=== PATIENT | male | born 1960 | race Caucasian/White ===

== ENCOUNTER 2025-05-26 08:54 | Inpatient (IN) | payer SELFPAY ==
[~2025-05-26] VITALS: Ht 182.9 cm; Wt 81.6 kg
[2025-05-26 09:15] LABS: IMMATURE GRANULOCYTE ABSOLUTE 0.02 K/uL (0-1); NUCLEATED RED BLOOD CELLS 0.0 % (0.0-0.19); PLATELET COUNT (AUTO) 248 K/uL (130-400); RED BLOOD CELL COUNT(AUTO) 4.73 MIL/uL (4.50-6.20); RED CELL DISTRIBUTION WIDTH 12.8 % (11.0-15.5); WHITE BLOOD COUNT (AUTO) 8.4 K/uL (4.8-10.8)
[2025-05-26] MEDS: NITROGLYCERIN 0.4 MG SL TAB SL PRN (09:33)
[2025-05-26] MEDS: NITROGLYCERIN 0.4 MG SL TAB SL ONE (09:33)
--- NOTE | 2025-05-26 09:47 | HMCIMG ---
EXAM: CR Chest, 2 View. CLINICAL HISTORY: cp COMPARISON: None provided. FINDINGS: LUNGS: The lungs show no infiltrate or other acute finding. PLEURAL SPACES: No evidence of pleural effusion or pneumothorax. MEDIASTINUM: Cardiac size and mediastinal contours within normal limits. BONES: No acute osseous abnormality. IMPRESSION: No acute cardiopulmonary pathology is evident. /[place]
[2025-05-26 09:49] LABS: CREATININE 0.9 mg/dL (0.5-1.3); GLOMERULAR FILTR. RATE CALC 97.0 mL/min (>90); GLUCOSE,RANDOM 117.0 mg/dL (70-105); SODIUM SERUM 138.0 mmol/L (136-145); UREA NITROGEN, BLOOD 12.0 mg/dL (7-18)
[2025-05-26 09:54] LABS: CREATINE KINASE, TOTAL 127.0 U/L (21-232)
[2025-05-26 09:58] LABS: INR 1.03 (0.85-1.15)
--- NOTE | 2025-05-26 10:05 | ERN ---
General Chief Complaint: Chest Pain Stated Complaint: CP Time Seen by MD: 08:57 Source: patient History of Present Illness Initial Comments Patient is a 64-year-old gentleman coming in complaining of chest pressure. Patient states that the chest pressure began two days ago. Patient does not has a past medical history of CAD or diabetes or hypertension. Patient quantifies the pain at 8/10 initially states he held off on coming and did this morning the pain was at 10/10 that is what made him come in. Allergies: Coded Allergies: No Known Drug Allergies (Unverified Allergy, Unknown, 05/26/25) Past Medical History Past Medical History: No Pertinent History Medical History Other: denies pmhx Past Surgical History: None ROS Dictation CONSTITUTIONAL: No chills, no fever, no weakness, no diaphoresis, no malaise. HEAD/FACE: No signs of trauma. EENT: No eye pain, no blurred vision, no tearing, no double vision, no ear pain, no ear discharge, no nose pain, no nasal congestion, no throat pain, no throat swelling, no mouth pain. RESPIRATORY: No cough, no orthopnea, no SOB, no stridor, no wheezing. CARDIOVASCULAR: chest pain, no edema, no palpitations, no syncope. GASTROINTESTINAL/ABDOMINAL: No abdominal pain, no constipation, no diarrhea, no nausea, no vomiting. GENITOURINARY: No abnormal discharge, no dysuria, no frequent urination, no hematuria. No complaints of pain in the genitals. MUSCULOSKELETAL: No back pain, no gout, no joint pain, no joint swelling, no muscle pain, no muscle stiffness, no neck pain. INTEGUMENTARY: No change in color, no change in hair/nails, no dryness, no lesion, no lumps, no rash. NEUROLOGICAL/PSYCH: No anxiety, not depressed, no emotional problem, no headache, no numbness, no pre-existing deficit, no history of seizures, no tremors, no weakness. HEMATOLOGIC/LYMPHATIC: Not anemic, no history of blood clots, no apparent bleeding, no bruising, glands not swollen. All Systems Negative, Except as Noted. Physical Exam Physical Exam Dictation VITAL SIGNS: Reviewed. GENERAL APPEARANCE: Alert, oriented x3, no acute distress, obese. HEAD AND FACE: Non-traumatic. EYES: PERRL, pink conjunctivas, eyelid no trauma, anterior chamber clear. EARS: Pinnas intact and no signs of trauma or erythema. Ear canals clear and no discharge. TMs no erythema. NOSE: No discharge, no bleeding. OROPHARYNX: Mouth normal, teeth no caries, tongue pink. Pharynx clear, no erythema. Tonsils no exudates, no abscesses noted. Mucous membrane moist. NECK: Supple, non-tender, no thyromegaly, no masses, no JVD, no bruits. BREAST: Deferred. CHEST: No tenderness, no crepitus, no paradoxical movement, no retractions. LUNGS: Clear, well-ventilated, symmetric, no rales, no wheezing, no rhonchi, no stridor, good breath sounds bilaterally. HEART: Regular rate, regular rhythm, no murmur, no gallops. VASCULAR: No peripheral edema. ABDOMEN: Soft, positive bowel sounds, nondistended, no guarding, nontender, no rebound, no masses no hepatomegaly, no splenomegaly, no Keith's sign, no hernias. RECTAL: Deferred. GENITAL: Deferred. NEUROLOGICAL: Normal speech, gross motor function intact, gross sensory function intact. MUSCULOSKELETAL: Neck nontender, full range of motion, back nontender, full range of motion. EXTREMITIES: Nontender, full range of motion. SKIN: Color pink, dry, no turgor, no rash, no lacerations, no abrasions, no contusions. LYMPHATICS: Deferred. Results Laboratory and Microbiology Lab and Micro Result Laboratory Tests Test 05/26/25 09:06 05/26/25 09:12 05/26/25 10:12 05/26/25 10:13 Prothrombin Time 10.9 SEC (9.6-11.6) Prothromb Time International Ratio 1.03 (0.85-1.15) Activated Partial Thromboplast Time 31.3 SEC (26.3-35.5) White Blood Count 8.4 K/uL (4.8-10.8) Red Blood Count 4.73 MIL/uL (4.50-6.20) Hemoglobin 14.2 g/dL (14.0-18.0) Hematocrit 42.0 % (42-54) Mean Corpuscular Volume 88.8 fL (79-99) Mean Corpuscular Hemoglobin 30.0 pg (27.0-33.0) Mean Corpuscular Hemoglobin Concent 33.8 g/dL (32.0-36.0) Red Cell Distribution Width 12.8 % (11.0-15.5) Platelet Count 248 K/uL (130-400) Mean Platelet Volume 9.5 fL (7.5-10.5) Immature Granulocyte % (Auto) 0.2 % (0-1) Neutrophils (%) (Auto) 54.6 % (40.0-77.0) Lymphocytes (%) (Auto) 31.9 % (21.0-51.0) Monocytes (%) (Auto) 9.2 % (3.0-13.0) Eosinophils (%) (Auto) 3.3 % (0.0-8.0) Basophils (%) (Auto) 0.8 % (0.0-5.0) Neutrophils # (Auto) 4.6 K/uL (1.8-7.7) Lymphocytes # (Auto) 2.7 K/uL (1.0-4.8) Monocytes # (Auto) 0.8 K/uL (0.1-1.0) Eosinophils # (Auto) 0.28 K/uL (0.00-0.70) Basophils # (Auto) 0.07 K/uL (0.00-0.20) Absolute Immature Granulocyte (auto 0.02 K/uL (0-1) Nucleated Red Blood Cells 0.0 % (0.0-0.19) Sodium Level 138 mmol/L (136-145) Potassium Level 3.3 mmol/L (3.5-5.1) L Chloride Level 102 mmol/L (101-111) Carbon Dioxide Level 28 mmol/L (21-32) Blood Urea Nitrogen 12 mg/dL (7-18) Creatinine 0.9 mg/dL (0.5-1.3) Glomerular Filtration Rate Calc 97 mL/min (>90) Random Glucose 117 mg/dL (70-105) H Total Calcium 8.5 mg/dL (8.5-10.1) Magnesium Level 2.00 mg/dL (1.80-2.40) Total Creatine Kinase 127 U/L (21-232) Troponin I High Sensitivity 1015 ng/L (4-75) *H 1227 ng/L (4-75) *H Urine Color LIGHT-YELLOW (YELLOW) Urine Appearance CLEAR (CLEAR) Urine pH 6.0 (5.0-8.0) Urine Specific [place] 1.013 (1.001-1.031) Urine Protein NEGATIVE mg/dL (NEGATIVE) Urine Glucose (UA) NEGATIVE mg/dL (NEGATIVE) Urine Ketones 5 mg/dL (NEGATIVE) H Urine Occult Blood NEGATIVE (NEGATIVE) Urine Nitrate NEGATIVE (NEGATIVE) Urine Bilirubin NEGATIVE mg/dL (NEGATIVE) Urine Urobilinogen 0.2 mg/dL (0.2-1.0) Urine Leukocyte Esterase NEGATIVE Angely/uL Labs Reviewed?: Yes EKG/XRAY/US/CT/MRI EKG Comment 1st- EKG 05/26/2025 time 8:56 a.m. Ventricular rate 71 Sinus rhythm IN 161 Leads one aVL mild ST wave changes, leads V2 V3 V4 subtle ST wave depression 2nd EKG Same as prior one 3rd 3rd EKG performed with posterior leads requested by manager roofing No changes MDM MDM: Differential diagnosis: NSTEMI, ACS, STEMI Rationale: Tests considered and ordered secondary to shared decision making inc lude: labs, ECG and radiology Previous outside records reviewed: Old ER visits. Risk of complication and/or morbidity or mortality of patient management: None Medications-Per medication reconciliation Need for hospitalization: Patient does meet criteria for hospitalization. Need for emergency major/minor surgery: No There are no social concerns with this patient. Prescription drug management Prescriptions will include symptomatic care Patient's prior external medical records from other ER visits were reviewed by me as indicated. Prior testing and results from previous visits were reviewed. Prior tests were taken into account with medical decision making and resource utilization, independent historian/historians were used to obtain complete medical history. I independently interpreted the test that were performed, results were reviewed by me and considered findings on radiology if ordered. Medical management and examination interpretation discussions were had by me with other qualified healthcare professionals as indicated for the patient's care. Dr. Gil manager roofing on the case per his request repeat EKG with the posterior leads every 20 minutes cardiac enzymes elevated. Patient will be admitted under the care of hospitalist group. ED Course Orders Procedure Category Date Status Time Cbc With Differential LAB 05/26/25 Complete 09:00 Chest 1vw RAD 05/26/25 Resulted 09:00 12 Lead Ekg Tracing- EKG 05/26/25 Logged Technical 09:00 Nitroglycerin 0.4mg PHA 05/26/25 In Process Sl Tab (Nitrostat) 09:00 Magnesium LAB 05/26/25 Complete 09:00 Creatine Kinase, Total LAB 05/26/25 Complete 09:00 Troponin I High LAB 05/26/25 Complete Sensitivity 09:00 Urinalysis Profile LAB 05/26/25 In Process 09:00 Basic Metabolic Panel LAB 05/26/25 Complete 09:00 Nitroglycerin 0.4mg PHA 05/26/25 Complete Sl Tab (Nitrostat) 09:03 Pt And Ptt LAB 05/26/25 Complete 09:45 Heparin 5,000 Unit PHA 05/26/25 Complete Vial (Heparin 5,000 U 10:00 Potassium Bicarb/Cit PHA 05/26/25 Complete Ac 25meq (K-Lyte Ta 10:00 Troponin I High LAB 05/26/25 Complete Sensitivity 10:06 12 Lead Ekg Tracing- EKG 05/26/25 Logged Technical 10:12 12 Lead Ekg Tracing- EKG 05/26/25 Logged Technical 10:12 12 Lead Ekg Tracing- EKG 05/26/25 Logged Technical 10:12 Heparin 25,000 PHA 05/26/25 In Process Units/250ml D5w 10:30 Partial LAB 05/26/25 Logged Thromboplastin Time 16:00 Current Medications Medications (Trade) Dose Ordered Sig/Alex Route PRN Reason Start Time Stop Time Status Last Admin Dose Admin Heparin Sodium (Porcine) (HEParin 5,000 UNIT VIAL) 6,000 unit ONCE ONCE IV 05/26/25 10:00 05/26/25 10:01 DC 05/26/25 10:13 Heparin Sodium/ Dextrose 250 ml @ 0 mls/hr PROTOCOL IV 05/26/25 10:30 06/25/25 10:29 05/26/25 10:35 Nitroglycerin (Nitrostat) 0.4 mg Q5M PRN SL CHEST PAIN 05/26/25 09:00 05/26/25 09:33 Nitroglycerin (Nitrostat) 0.4 mg STK-MED ONCE SL 05/26/25 09:03 05/26/25 09:03 DC Potassium Bicarbonate (K-Lyte Tablet Eff 25 Meq Tablet.eff) 25 meq ONCE ONCE PO 05/26/25 10:00 05/26/25 10:02 DC 05/26/25 10:12 Vital Signs Date Time Temp Pulse Resp B/P (MAP) Pulse Ox O2 Delivery O2 Flow Rate FiO2 05/26/25 09:30 98.1 64 10 111/72 98 Room Air* 0 21 05/26/25 09:20 98.1 80 16 114/69 98 Room Air* 0 21 05/26/25 09:11 98.1 77 18 121/78 97 Room Air* 0 21 05/26/25 08:58 97.5 73 18 153/84 98 Room Air 0 05/26/25 08:58 97.5 73 18 153/84 98 Room Air* 0 21 Critical Care Note Comments Critical Care Procedure Note Authorized and Performed by: me Total critical care time: Approximately 36 minutes Due to a high probability of clinically significant, life threatening deterioration, the patient required my highest level of preparedness to intervene emergently and I personally spent this critical care time directly and personally managing the patient. This critical care time included obtaining a history; examining the patient; pulse oximetry; ordering and review of studies; arranging urgent treatment with development of a management plan; evaluation of patient's response to treatment; frequent reassessment; and, discussions with other providers. This critical care time was performed to assess and manage the high probability of imminent, life-threatening deterioration that could result in multi-organ failure. It was exclusive of separately billable procedures and treating other patients and teaching time. Please see MDM section and the rest of the note for further information on patient assessment and treatment. DX & DISP Disposition: Inpatient Decision to Admit Time: 11:14 Departure Impression: Primary Impression: Non-STEMI (non-ST elevated myocardial infarction) Condition: Stable Referrals: SELF,REFERRAL (PCP) ROMEL MIRANDA MD May 26, 2025 10:05
[2025-05-26 11:06] LABS: APPEARANCE,URINE CLEAR (CLEAR); GLUCOSE, URINE (UA) NEGATIVE (NEGATIVE); LEUKOCYTE ESTERASE ,URINE NEGATIVE Leu/uL (NEGATIVE); NITRATE,URINE NEGATIVE (NEGATIVE); OCCULT BLOOD,URINE NEGATIVE (NEGATIVE)
[2025-05-26 11:11] LABS: ADD UA MICROSCOPIC YES
[2025-05-26] MEDS ORDERED: PoTASSium chloRIDE 20MEQ ER 20 MEQ ERTAB PO PRN (11:30)
[2025-05-26] MEDS ORDERED: NITROGLYCERIN 0.4 MG SL TAB SL PRN (11:30)
[2025-05-26] MEDS ORDERED: MAGNESIUM 2GM PREMIX 50ML 50 ML IV PRN (11:30)
--- NOTE | 2025-05-26 11:32 | HP ---
[facility] Date of Service: May 26, 2025 Time of Service: 11:32 HISTORY OF PRESENT ILLNESS: 64-year-old male with no significant past medical history who presented to the hospital secondary to chest pain. Patient states for the past one week he has noted midsternal chest pain which has been happening intermittently at rest. The pain would radiate towards his jaw and his arms. He denied any paresthesias, nausea, vomiting associated with the pain. Describes the pain as ' burning' in nature. Pain happened again today which did not resolve and was more substantial and continued to persist. Patient was taking aspirin for the past few days. He currently does not take any medications at home. Denied any abdominal pain, fever, chills, cough, falls, syncopal episode. He does not see primary care physician. Took aspirin today prior to coming to the hospital. Labs in the ED were notable for white count of 8.4, hemoglobin was 14.2, platelet count was 248 K, sodium was 138, potassium was 3.3, creatinine was 0.9, blood glucose was 117, troponin was 1015 which increased to 1227 Chest x-ray showed no acute infiltrates In the ER patient's 1st EKG showed ST depressions in V2 and V3. This was concerning for possible posterior [place]. Cardiology was consulted. Patient had repeat EKG performed with per posterior leads which showed improvement. Cardiology recommended treatment with heparin drip, aspirin, Lipitor. The patient will remain NPO for now until further evaluation by Cardiology. REVIEW OF SYSTEMS CONSTITUTIONAL: Denies fevers, chills, or night sweats. No unintentional weight loss reported. NEUROLOGICAL: Denies headache, amaurosis fugax, motor weakness, sensory deficit, vertigo/spinning sensation, gait abnormalities, or tremors. ENT: No hearing loss, otalgia, otorrhea, rhinitis, rhinorrhea, hoarseness, or sore throat. CARDIOVASCULAR: Positive for chest pain. Denied any orthopnea, PND PULMONARY: Denies any shortness of breath, cough, phlegm/sputum, hemoptysis, pleuritic chest pain. GASTROINTESTINAL: Denies any type of dysphagia to either liquids or solids. Denies nausea, vomiting, pyrosis, early satiety, abdominal pain, diarrhea, constipation, or changes in stool consistency or caliber. Denies coffee-ground emesis, hematemesis, hematochezia, or melanotic stools. GENITOURINARY: Denies frequency, urgency, nocturia, hematuria or incontinence (Storage/Irritative symptoms.) Low urinary stream, straining to void, urinary intermittency or hesitancy, splitting of the voiding stream, terminal dribbling. ENDOCRINOLOGIC: Denies polyuria, polydipsia, polyphagia or heat/cold intolerances. HEMATOLOGIC: Denies thrombophilia/previous clots, or coagulopathy/bleeding disorders. ONCOLOGIC: Denies personal history of malignancy. DERMATOLOGIC: Denies rashes or pruritus. PSYCHIATRIC: Denies any suicidal or homicidal ideation. Denies hallucinations. PAST MEDICAL HISTORY: Denied any significant past medical history PAST SURGICAL HISTORY: Denied any surgical history PAST SOCIAL HISTORY: Denied any smoking, alcohol, drug use FAMILY HISTORY: Patient's mother has a history of mitral valve prolapse. Coded Allergies: No Known Drug Allergies (Unverified Allergy, Unknown, 05/26/25) PHYSICAL EXAM GENERAL APPEARANCE: The patient is awake, alert, and oriented, in no acute cardiopulmonary distress. NEUROLOGICAL: Cranial nerves II-XII grossly intact. Motor is 5/5 in bilateral upper and lower extremities proximal to distal. No sensory deficits. HEENT: Face is symmetric. Pupils are equal and reactive. Extraocular movements are intact. NECK: Supple. No JVD. No thyromegaly. No submental, submandibular, pre- /postauricular, occipital or supraclavicular lymphadenopathy. CHEST: Normal chest expansion. No Telemetry. LUNGS: Absence of any rales, rhonchi or any wheezing. CARDIOVASCULAR: Regular. S1 and S2 normal. No appreciable rubs, murmurs or gallops. ABDOMEN: Soft, nontender, and nondistended. There is no rebound, voluntary guarding, or rigidity. : Deferred. No Zuniga. EXTREMITIES: Non-edematous and not cyanotic. No clubbing. Good capillary refill. SKIN: No skin breakdown. Vital Sign (Last 24 Hours) 05/26/25 09:30 Temp 98.1 Pulse 64 Resp 10 B/P (MAP) 111/72 Pulse Ox 98 O2 Delivery Room Air* O2 Flow Rate 0 FiO2 21 LABS: Laboratory: Test 05/26/25 10:13 05/26/25 10:12 05/26/25 09:12 05/26/25 09:06 Range/Units Troponin I High Sensitivity 1227 *H 4-75 ng/L Urine Color LIGHT-YELLOW YELLOW Urine Appearance CLEAR CLEAR Urine pH 6.0 5.0-8.0 Urine Specific [place] 1.013 1.001-1.031 Urine Protein NEGATIVE NEGATIVE mg/dL Urine Glucose (UA) NEGATIVE NEGATIVE mg/dL Urine Ketones 5 H NEGATIVE mg/dL Urine Occult Blood NEGATIVE NEGATIVE Urine Nitrate NEGATIVE NEGATIVE Urine Bilirubin NEGATIVE NEGATIVE mg/dL Urine Urobilinogen 0.2 0.2-1.0 mg/dL Urine Leukocyte Esterase NEGATIVE NEGATIVE Angely/uL White Blood Count 8.4 4.8-10.8 K/uL Red Blood Count 4.73 4.50-6.20 MIL/uL Hemoglobin 14.2 14.0-18.0 g/dL Hematocrit 42.0 42-54 % Mean Corpuscular Volume 88.8 79-99 fL Mean Corpuscular Hemoglobin 30.0 27.0-33.0 pg Mean Corpuscular Hemoglobin Concent 33.8 32.0-36.0 g/dL Red Cell Distribution Width 12.8 11.0-15.5 % Platelet Count 248 130-400 K/uL Mean Platelet Volume 9.5 7.5-10.5 fL Immature Granulocyte % (Auto) 0.2 0-1 % Neutrophils (%) (Auto) 54.6 40.0-77.0 % Lymphocytes (%) (Auto) 31.9 21.0-51.0 % Monocytes (%) (Auto) 9.2 3.0-13.0 % Eosinophils (%) (Auto) 3.3 0.0-8.0 % Basophils (%) (Auto) 0.8 0.0-5.0 % Neutrophils # (Auto) 4.6 1.8-7.7 K/uL Lymphocytes # (Auto) 2.7 1.0-4.8 K/uL Monocytes # (Auto) 0.8 0.1-1.0 K/uL Eosinophils # (Auto) 0.28 0.00-0.70 K/uL Basophils # (Auto) 0.07 0.00-0.20 K/uL Absolute Immature Granulocyte (auto 0.02 0-1 K/uL Nucleated Red Blood Cells 0.0 0.0-0.19 % Sodium Level 138 136-145 mmol/L Potassium Level 3.3 L 3.5-5.1 mmol/L Chloride Level 102 101-111 mmol/L Carbon Dioxide Level 28 21-32 mmol/L Blood Urea Nitrogen 12 7-18 mg/dL Creatinine 0.9 0.5-1.3 mg/dL Glomerular Filtration Rate Calc 97 >90 mL/min Random Glucose 117 H 70-105 mg/dL Total Calcium 8.5 8.5-10.1 mg/dL Magnesium Level 2.00 1.80-2.40 mg/dL Total Creatine Kinase 127 21-232 U/L Prothrombin Time 10.9 9.6-11.6 SEC Prothromb Time International Ratio 1.03 0.85-1.15 Activated Partial Thromboplast Time 31.3 26.3-35.5 SEC Current Medications Medications (Trade) Dose Ordered Sig/Alex Route PRN Reason Start Time Stop Time Status Last Admin Dose Admin Heparin Sodium/ Dextrose 250 ml @ 0 mls/hr PROTOCOL IV 05/26/25 10:30 06/25/25 10:29 05/26/25 10:35 13.87 MLS/HR Nitroglycerin (Nitrostat) 0.4 mg Q5M PRN SL CHEST PAIN 05/26/25 09:00 05/26/25 09:33 0.4 MG DIAGNOSTICS / RADIOLOGY: [ ] ASSESSMENT: ACS with NSTEMI POA Hypokalemia Hypertension improved PLAN: - patient to be admitted to PCCU -in reference to NSTEMI. Patient took aspirin prior to coming to the hospital. He will continue on heparin drip. Patient will remain NPO for now. Trend troponins q.6 hours. Obtain echocardiogram. Start patient on Lipitor. Check hemoglobin A1c, TSH and fasting lipid for tomorrow. We will follow up on recommendations Cardiology -patient will be started on hypokalemia protocol -monitor blood pressure for now. BP elevation likely in setting of pain. Patient's blood pressure has improved. -further orders per hospitalization course. Advanced Care Planning Which of the following were discussed: Hospice care: Yes __ No _x_ Therapeutic options: Yes __ No __ Advance directives: Yes __ No __ Other discussions: Discussed with who?: patient (Patient, family or surrogates) Voluntary nature of this service was explained to the patient? Yes _x_ No __ Amount of time spent: 25 minutes JAYCEE Tabor MD, MD May 26, 2025 11:32
--- NOTE | 2025-05-26 11:35 | NUR ---
PER PT STATES HE DOES NOT TAKE HOME MEDICATIONS.
[2025-05-26 11:41] LABS: SQUAMOUS EPITHELIAL CELL,UR RARE /HPF (0-2)
--- NOTE | 2025-05-26 12:47 | EKG ---
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
--- NOTE | 2025-05-26 14:41 | EKG ---
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
--- NOTE | 2025-05-26 14:45 | EKG ---
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
--- NOTE | 2025-05-26 14:45 | EKG ---
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
--- NOTE | 2025-05-26 15:30 | EKG ---
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
--- NOTE | 2025-05-26 17:01 | CONS ---
[facility] CARDIOLOGY CONSULTATION NOTE Date Patient Seen: May 26, 2025 Time of Visit: 16:56 Reason for Consultation: [NSTEMI] History of Present Illness: [ 64-year-old male with no significant past medical history who presented to [facility] due to a two day history of epigastric pain radiating to his bilateral arms which initiated a proximally 30-45 minutes after a meal. Patient denies a history of similar symptoms or GERD/gastritis. Patient states that his symptoms were accompanied by nausea and cold sweats. His symptoms lasted approximately 15-20 minutes resolving spontaneously. And over the course of the past two days have been occurring intermittently with increased frequency. On further description patient states his symptoms are described as pressure-like, 8/10 in severity, and relieved by sublingual nitro. In the ER patient was noted to have an elevated troponin over 1000 that is up trended to 3000 in his presenting ECG showed sinus rhythm with ST depressions in V2/V3 with upright are and T-waves concerning for a possible posterior acute ND. we immediately performed posterior ECG leads and V seven through V nine did not reveal any acute ST elevations. Serial ECGs have revealed dynamic ST and T-wave changes concerning for anterolateral ischemia. Patient was started on ACS protocol and Cardiology was consulted. On evaluation the bedside patient on ongoing 3/10 chest pressure which he states improved following his sublingual nitro. His blood pressure is controlled and denies a history of CAD/mi or family history of premature CAD. He is a never smoker and denies ETOH/drug abuse. Cardiology was consulted for NSTEMI] Past Medical History: Refer to HPI Past Surgical History: [ None] Family History: [ Noncontributory] Social History: [ None] Habits: [Never] smoker. [Denies] alcohol consumption. [Denies] illicit drug use Review of Systems: Review of 12 point systems is negative except per HPI Physical Examination: GENERAL: [No acute distress.] HEAD: [Normal with no signs of head trauma.] EYES: [PERRLA, EOMI, conjunctiva and sclera normal.] ENT: [Hearing grossly intact, normal oropharynx.] NECK: [Supple without JVD. There is no tenderness, lymphadenopathy, or masses. No thyromegaly. Normal carotid upstrokes without bruits.] LUNGS: [Clear breath sounds bilaterally. No wheezes, or rhonchi.] HEART: [Normal rate and rhythm. Normal S1 and S2 without mumurs, gallop or rub.] VASC: [Peripheral pulses +2 bilaterally.] ABD: [Bowel sounds normal, soft, nontender, no masses, no organomegaly. No audib le bruits.] : [Not examined] LYMPH: [No lymphadenopathy noted.] EXT: [No clubbing, cyanosis or edema.] SKIN: [No rashes or lesions noted.] NEURO: [Awake, alert, and oriented x3. No focal sensory or strength deficits noted.] Vital Signs (last 8hr) Date Time Temp Pulse Resp B/P (MAP) Pulse Ox O2 Delivery O2 Flow Rate FiO2 05/26/25 13:47 98.2 70 14 116/69 98 Room Air* 0 05/26/25 12:45 98.2 61 14 106/63 98 Room Air* 0 05/26/25 11:37 98.2 67 16 113/76 98 Room Air* 0 05/26/25 09:30 98.1 64 10 111/72 98 Room Air* 0 05/26/25 09:20 98.1 80 16 114/69 98 Room Air* 0 05/26/25 09:11 98.1 77 18 121/78 97 Room Air* 0 05/26/25 08:58 97.5 73 18 153/84 98 Room Air 0 05/26/25 08:58 97.5 73 18 153/84 98 Room Air* 0 21 Laboratory: [ ] Hematology Labs: Test 05/26/25 09:12 Range/Units White Blood Count 8.4 4.8-10.8 K/uL Red Blood Count 4.73 4.50-6.20 MIL/uL Hemoglobin 14.2 14.0-18.0 g/dL Hematocrit 42.0 42-54 % Mean Corpuscular Volume 88.8 79-99 fL Mean Corpuscular Hemoglobin 30.0 27.0-33.0 pg Mean Corpuscular Hemoglobin Concent 33.8 32.0-36.0 g/dL Red Cell Distribution Width 12.8 11.0-15.5 % Platelet Count 248 130-400 K/uL Mean Platelet Volume 9.5 7.5-10.5 fL Immature Granulocyte % (Auto) 0.2 0-1 % Neutrophils (%) (Auto) 54.6 40.0-77.0 % Lymphocytes (%) (Auto) 31.9 21.0-51.0 % Monocytes (%) (Auto) 9.2 3.0-13.0 % Eosinophils (%) (Auto) 3.3 0.0-8.0 % Basophils (%) (Auto) 0.8 0.0-5.0 % Neutrophils # (Auto) 4.6 1.8-7.7 K/uL Lymphocytes # (Auto) 2.7 1.0-4.8 K/uL Monocytes # (Auto) 0.8 0.1-1.0 K/uL Eosinophils # (Auto) 0.28 0.00-0.70 K/uL Basophils # (Auto) 0.07 0.00-0.20 K/uL Absolute Immature Granulocyte (auto 0.02 0-1 K/uL Nucleated Red Blood Cells 0.0 0.0-0.19 % Chemistry Labs: Test 05/26/25 16:07 05/26/25 11:53 05/26/25 09:12 Range/Units Troponin I High Sensitivity 3437 *H 4-75 ng/L Thyroid Stimulating Hormone (TSH) 2.01 0.36-3.74 uIU/mL Sodium Level 138 136-145 mmol/L Potassium Level 3.3 L 3.5-5.1 mmol/L Chloride Level 102 101-111 mmol/L Carbon Dioxide Level 28 21-32 mmol/L Blood Urea Nitrogen 12 7-18 mg/dL Creatinine 0.9 0.5-1.3 mg/dL Glomerular Filtration Rate Calc 97 >90 mL/min Random Glucose 117 H 70-105 mg/dL Hemoglobin A1c 5.2 4.0-6.0 % Estimated Average Glucose (eAG) 103 70-126 mg/dL Total Calcium 8.5 8.5-10.1 mg/dL Magnesium Level 2.00 1.80-2.40 mg/dL Total Creatine Kinase 127 21-232 U/L Coagulation Labs: Test 05/26/25 16:07 05/26/25 09:06 Range/Units Activated Partial Thromboplast Time > 139.0 #*H 26.3-35.5 SEC Prothrombin Time 10.9 9.6-11.6 SEC Prothromb Time International Ratio 1.03 0.85-1.15 Diagnostics / Radiology: [Copy/Paste Echos/Imaging Report here] Assessment: [NSTEMI ] Plan: [ # NSTEMI : Patient with no significant past medical history presenting with two day history of anterior epigastric pressure radiating to bilateral arms Patient describes this is intermittent lasting 15-30 minutes at a time rated as a 8/10 in severity and relieved two sublingual nitro Presenting ECG concerning for possible posterior acute ND we obtain stat posterior leads and V seven through V nine did not reveal any ST elevations Serial ECGs have been dynamic revealing T-wave inversions and ST depressions in his troponins have up trended to 3000 Continue with ACS protocol including IV heparin drip, aspirin 324, Lipitor 40 mg q.h.s., we will defer the use of P2Y12 inhibitors while we await coronary angiogram in the event that has triple-vessel disease Please order formal 2D echocardiogram to assess systolic and valvular function Continue trending cardiac enzymes until they peak and down trend along with serial ECGs We will plan for urgent coronary angiogram today with possible PCI All the risks were explained in great detail including mi/CVA/renal failure and . Patient verbalized understanding is agreeable plan of care Please keep patient on telemetry. Monitor/replace electrolytes as needed Formal recommendations pending coronary angiogram and 2D echocardiogram results Thank you for this consult. Cardiology continued to follow along pending coronary angiogram and 2D echocardiogram results Kolby jimenez MD ] KOLBY JIMENEZ MD May 26, 2025 17:01
--- NOTE | 2025-05-26 18:56 | HMCSR ---
APPROVED REPORT EXAM: Two-dimensional and M-mode echocardiogram with Doppler and color Doppler. INDICATION ICD: Non ST-elevation ND I21.4 2D Dimensions RVDd4.0 cmLVEF(%)60.2 (>50%)LVED Vol(simp.)138.0 mL IVSd0.8 (0.7-1.1cm)FS(%)32 %LVES Vol(simp.)68.0 mL LVDd5.1 (3.8-5.6cm)LA (2D)3.0 (1.6-4.0cm)LVEF(%, simp.)50 % PWd1.1 (0.7-1.1cm)Ao Root(2D)3.4 (2.0-3.7cm)LA ESV INDEX (BP)28.10 mL/m2 LVDs3.5 (2.5-4.0cm)LVOT diam2.3 (1.8-2.4cm) IVC diam1.8 cm Deformation Strain Apical 4-16.0 % Apical 2-14.8 % Apical 3-15.0 % Global Strain-15.3 % M-Mode Dimensions EPSS0.8 cm LA (MM)3.2 (1.6-4.0cm) Ao Root(MM)3.7 (2.0-3.7cm) Aortic Valve AoV Vmax1.2 m/Dick Peak GR5.5 mmHgLVOT Vmax1.0 m/s AoV VTI0.3 mAo Mean GR3.0 mmHgLVOT VTI0.24 m JACEK (VMAX)3.45 cm2AVA (VTI) 3.5 cm2 Mitral Valve MV E Vmax59.1 cm/sDECEL Jmur624 ms MV A Vmax55.9 cm/sP 1/2 T129 ms E/A ratio1.1MVA (PHT)1.7 cm2 TDI E/E' Medial8.1E/E' Ojufbrc96.1 Medial E' Peak V7.32 cm/sLateral E' Peak V4.90 cm/s Pulmonary Valve PV Vmax0.9 m/sPV VTI0.20 mPV Mean GR2.1 mmHg PV Peak GR3.5 mmHgPI End Roselia. Silas 64.5 cm/s Tricuspid Valve TR Vmax1.9 m/sRVSP14.1 mmHg TR Peak GR14.1 mmHg Left Ventricle The left ventricle is normal size. There is normal left ventricular wall thickness. LVEF is 45-50%. T he left ventricular diastolic function is normal. Right Ventricle The right ventricle is normal size. The right ventricular systolic function is normal. Atria The left atrium size is normal. The right atrium size is normal. Aortic Valve The aortic valve is normal in structure. No aortic regurgitation is present. There is no aortic valvu lar stenosis. Mitral Valve The mitral valve is normal in structure. There is no mitral valve regurgitation noted. There is no mi tral valve stenosis. Tricuspid Valve The tricuspid valve is normal in structure. There is trivial tricuspid valve regurgitation noted. Pulmonic Valve The pulmonary valve is normal in structure. There is no pulmonic valvular regurgitation. Great Vessels The aortic root is normal in size. The IVC is normal in size and collapses >50% with inspiration. Pericardium There is no pericardial effusion. Conclusion The left ventricle is normal size. LVEF is 45-50%. The left ventricular diastolic function is normal. The right ventricle is normal size. The right ventricular systolic function is normal. The left atrium size is normal. The right atrium size is normal. No valvular pathology. There is no pericardial effusion.
[2025-05-26] MEDS ORDERED: IOHEXOL 350 MG/ML 100ML INFUS..BTL IV ONE ×2 (19:29→21:19)
[2025-05-26] MEDS ORDERED: LIDOCAINE HCL 400MG/20ML VIAL ONE (19:29)
[2025-05-26] MEDS ORDERED: HEParin-NS 1,000 UNIT/500 ML 1,000 ML IV ONE (19:30)
[2025-05-26] MEDS ORDERED: NITROGLYCERIN 50MG VIAL ONE (19:30)
[2025-05-26] MEDS ORDERED: VERAPAMIL HCL 2.5 MG/ML VIAL ONE (19:30)
--- NOTE | 2025-05-26 19:30 | NUR ---
DR. JIMENEZ AT BEDSIDE
--- NOTE | 2025-05-26 20:03 | NUR ---
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
[2025-05-26 20:10] VITALS: O2SAT 99
[2025-05-26] MEDS ORDERED: MIDAZOLAM HCL 1 MG/ML 2ML VIAL ONE ×2 (20:25→20:30)
[2025-05-26] MEDS ORDERED: HEParin-NS 1,000 UNIT/500 ML 500 ML IV ONE (21:20)
[2025-05-26 22:15] VITALS: BP 102/67; PULSE 63; RESP 18; TEMP 97.8
[2025-05-26 22:30] VITALS: BP 105/59; PULSE 65
[2025-05-26] MEDS: FAMOTIDINE 20MG VIAL IV SCH (22:36)
--- NOTE | 2025-05-26 22:38 | PRN ---
PROCEDURE REPORT DATE OF PROCEDURE: May 26, 2025 COMPENSATION ASSOCIATE: [ Wily euceda MD] PROCEDURE PERFORMED: Conscious sedation Ultrasound guided right radial artery access Selective left coronary artery angiogram Selective right coronary artery angiogram Left heart catheterization EUS of the LAD and left main Status post successful IVUS guided PTCA/PCI of the proximal LAD (3.5 x 15 mm ruthann [place] RADHA, post dil to 4 mm) Status post successful PTCA/PCI of the proximal OM2 (3.5 x 15 mm ruthann [place] RADHA, postdilated 4 mm) TR band 13 jerzy over right radial artery INDICATION: NSTEMI DESCRIPTION OF PROCEDURE: After informed consent was obtained, the patient was prepped and draped in the usual sterile fashion. A 6 [place] arterial sheath was inserted in the right radial artery using ultrasound guidance with first pass wall puncture. The arterial sheath was aspirated and flushed. A 6 [place] JL 3.5 was then advanced to the ascending aorta over an exchange length J-tip guidewire, was aspirated and flushed, and was used for selective coronary angiograms in multiple obliquities. A JR-4 was advanced in a similar fashion to the ascending aorta over the J-tipped guidewire and was used for selective right coronary angiograms in multiple oblique views with findings as outlined below. The JR-4 catheter advanced into the LV and pressures were obtained with a pull-back across the aortic valve. Following review of the angiographic images decision was made to intervene on patient's critical LAD and OM2 stenosis. We exchanged the diagnostic catheters for a six [place] XB three guide which was advanced over the wire and similar fashion used to engage the left main coronary artery. We provided a total of 8000 so IV heparin and loading doses of ticagrelor and following therapeutic ACT we advanced a Prowater into the distal LAD under fluoroscopic guidance. We then proceeded with predilatation using a 3 x 12 mm compliant balloon to 14 JERZY. We proceeded with IVUS imaging of the LAD and left main to delineate lesion morphology and characteristics. We then deployed a 3.5 x 15 mm ruthann [place] drug-eluting stent within the proximal LAD which was deployed to nominal pressures. This was post dilated with a 4 mm x 15 NC balloon to 14 JERZY. We provided 200 mcg of intracoronary nitroglycerin and repeat angiogram revealed samaritan of brisk flow with no dissections or perforations. At this time we redirected our attention to the OM2 lesion. We move the Prowater and advanced a run-through wire into the distal OM2 under fluoroscopic guidance. We pre-dilated the proximal OM2 using a 3 x 12 mm compliant balloon to 14 JERZY. We then deployed a 3.5 x 15 mm ruthann [place] drug- eluting stent in the proximal OM2 to nominal pressures. This was post dilated with a 4 x 15 mm noncompliant balloon to nominal pressures. We provided an additional 200 mcg of intracoronary nitroglycerin and repeat angiogram revealed samaritan of ISAIAS three flow down the LAD and left circumflex with no dissections or perforations. At this time we removed all wires and catheters in the body and a TR band was placed over the right radial artery with patent hemostasis. 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 FLUOROSCOPY TIME: 18.1 min LEFT HEART HEMODYNAMICS: LVEDP 8 mm Hg and no gradient Ao CORONARY ANGIOGRAM: LEFT MAIN: Patent and 0% stenosis. Gives rise to LCx and LAD. LEFT ANTERIOR DESCENDING: Large vessel giving rise to two Diagonal branches. There is 99% proximal LAD stenosis just at the first septal artery with ISAIAS 2 flow. Diags are patent LEFT CIRCUMFLEX: Large and gives rise to two OM branches. 20-30% mid stenosis. OM1 is small and patent. OM2 is large with 99% proximal stenosis RIGHT CORONARY ARTERY: Codominant vessel giving rise to PDA . 60-70% proximal stenosis. HEMOSTASIS: TR band 12 jerzy over right radial artery INTERVENTIONS: Status post successful IVUS guided PTCA/PCI of the proximal LAD (3.5 x 15 mm ruthann [place] RADHA, post dil to 4 mm) Status post successful PTCA/PCI of the proximal OM2 (3.5 x 15 mm ruthann [place] RADHA, postdilated 4 mm) COMPLICATIONS: None FINDINGS: Normal coronary anatomy and severe 2vCAD. ESTIMATED BLOOD LOSS: 5 cc RECOMMENDATIONS/INSTRUCTIONS: Aggressive risk factor modification. Patient will require 12 months of dual antiplatelet therapy (aspirin 81 mg daily/ticagrelor 90 mg b.i.d.) in addition to high-intensity statin therapy and beta-melo Radial arm precautions follow up on 2D echocardiogram The patient remains stable can be discharged tomorrow morning with close outpatient cardiology follow up CONTRAST DELIVERED TO PATIENT (mL): 240cc MD BARBARA Burgess JAMES R MD May 26, 2025 22:38
[2025-05-26 22:45] VITALS: BP 101/62; PULSE 66
[2025-05-26 23:00] VITALS: BP 110/67; PULSE 64
[2025-05-26 23:30] VITALS: BP 107/64; PULSE 69
[2025-05-27] VITALS: BP 108/65; PULSE 67
[2025-05-27 04:00] VITALS: BP 132/81; PULSE 70; RESP 18; TEMP 98.3
[2025-05-27 04:11] LABS: NUCLEATED RED BLOOD CELLS 0.0 % (0.0-0.19); PLATELET COUNT (AUTO) 228.0 K/uL (130-400); RED BLOOD CELL COUNT(AUTO) 4.57 MIL/uL (4.50-6.20); RED CELL DISTRIBUTION WIDTH 12.9 % (11.0-15.5); WHITE BLOOD COUNT (AUTO) 10.5 K/uL (4.8-10.8)
[2025-05-27 04:30] LABS: LDL DIRECT 217 mg/dL (0-99)
[2025-05-27 06:43] LABS: CREATININE 0.7 mg/dL (0.5-1.3); GLOMERULAR FILTR. RATE CALC 104.0 mL/min (>90); GLUCOSE,RANDOM 88.0 mg/dL (70-105); SODIUM SERUM 138.0 mmol/L (136-145); UREA NITROGEN, BLOOD 9.0 mg/dL (7-18)
--- NOTE | 2025-05-27 07:25 | NUR ---
Stent ID card given to patient's .
[2025-05-27 08:00] VITALS: BP 99/70; PULSE 72; RESP 19; TEMP 97.4
--- NOTE | 2025-05-27 08:24 | PN ---
[facility] CARDIOLOGY PROGRESS NOTE Date Patient Seen: May 27, 2025 Time of Visit: 08:21 Interval History: [No events overnight ] Physical Examination: GENERAL: [No acute distress.] HEAD: [Normal with no signs of head trauma.] EYES: [PERRLA, EOMI, conjunctiva and sclera normal.] ENT: [Hearing grossly intact, normal oropharynx.] NECK: [Supple without JVD. There is no tenderness, lymphadenopathy, or masses. No thyromegaly. Normal carotid upstrokes without bruits.] LUNGS: [Clear breath sounds bilaterally. No wheezes, or rhonchi.] HEART: [Normal rate and rhythm. Normal S1 and S2 without mumurs, gallop or rub.] VASC: [Peripheral pulses +2 bilaterally.] ABD: [Bowel sounds normal, soft, nontender, no masses, no organomegaly. No audible bruits.] : [Not examined] LYMPH: [No lymphadenopathy noted.] EXT: [No clubbing, cyanosis or edema.] SKIN: [No rashes or lesions noted.] NEURO: [Awake, alert, and oriented x3. No focal sensory or strength deficits noted.] Laboratory: [ ] Hematology Labs: Test 05/27/25 03:36 05/26/25 09:12 Range/Units White Blood Count 10.5 4.8-10.8 K/uL Red Blood Count 4.57 4.50-6.20 MIL/uL Hemoglobin 13.7 L 14.0-18.0 g/dL Hematocrit 40.7 L 42-54 % Mean Corpuscular Volume 89.1 79-99 fL Mean Corpuscular Hemoglobin 30.0 27.0-33.0 pg Mean Corpuscular Hemoglobin Concent 33.7 32.0-36.0 g/dL Red Cell Distribution Width 12.9 11.0-15.5 % Platelet Count 228 130-400 K/uL Mean Platelet Volume 9.6 7.5-10.5 fL Nucleated Red Blood Cells 0.0 0.0-0.19 % Immature Granulocyte % (Auto) 0.2 0-1 % Neutrophils (%) (Auto) 54.6 40.0-77.0 % Lymphocytes (%) (Auto) 31.9 21.0-51.0 % Monocytes (%) (Auto) 9.2 3.0-13.0 % Eosinophils (%) (Auto) 3.3 0.0-8.0 % Basophils (%) (Auto) 0.8 0.0-5.0 % Neutrophils # (Auto) 4.6 1.8-7.7 K/uL Lymphocytes # (Auto) 2.7 1.0-4.8 K/uL Monocytes # (Auto) 0.8 0.1-1.0 K/uL Eosinophils # (Auto) 0.28 0.00-0.70 K/uL Basophils # (Auto) 0.07 0.00-0.20 K/uL Absolute Immature Granulocyte (auto 0.02 0-1 K/uL Chemistry Labs: Test 05/27/25 03:36 05/26/25 16:07 05/26/25 11:53 05/26/25 09:12 Range/Units Sodium Level 138 136-145 mmol/L Potassium Level 3.7 3.5-5.1 mmol/L Chloride Level 103 101-111 mmol/L Carbon Dioxide Level 23 21-32 mmol/L Blood Urea Nitrogen 9 7-18 mg/dL Creatinine 0.7 0.5-1.3 mg/dL Glomerular Filtration Rate Calc 104 >90 mL/min Random Glucose 88 70-105 mg/dL Total Calcium 8.2 L 8.5-10.1 mg/dL Triglycerides Level 76 30-200 mg/dL Cholesterol Level 275 H <200 mg/dL LDL Cholesterol 217 H 0-99 mg/dL HDL Cholesterol 38 29-71 mg/dL Troponin I High Sensitivity 3437 *H 4-75 ng/L Thyroid Stimulating Hormone (TSH) 2.01 0.36-3.74 uIU/mL Hemoglobin A1c 5.2 4.0-6.0 % Estimated Average Glucose (eAG) 103 70-126 mg/dL Magnesium Level 2.00 1.80-2.40 mg/dL Total Creatine Kinase 127 21-232 U/L Coagulation Labs: Test 05/26/25 16:07 05/26/25 09:06 Range/Units Activated Partial Thromboplast Time > 139.0 #*H 26.3-35.5 SEC Prothrombin Time 10.9 9.6-11.6 SEC Prothromb Time International Ratio 1.03 0.85-1.15 Diagnostics / Radiology: [Copy/Paste Echos/Imaging Report here] Impression and Plan: [ # NSTEMI, s/p PCI to proximal LAD and OM2 : Patient with no significant past medical history presenting with two day history of anterior epigastric pressure radiating to bilateral arms Patient describes this is intermittent lasting 15-30 minutes at a time rated as a 8/10 in severity and relieved two sublingual nitro Presenting ECG concerning for possible posterior acute [place] we obtain stat posterior leads and V seven through V nine did not reveal any ST elevations Serial ECGs have been dynamic revealing T-wave inversions and ST depressions in his troponins have up trended to 3000 c/w DAPT, aspirin 81 mg qd, ticagrelor 90 mg bid-->patient is unfunded and would like a cheaper option, called in script for plavix 600 mg LD once tomorrow am, then on 05/29 to start 75 mg qd atorvastatin 40 mg qhs 2d echo LVEF 45-50%, no valvular pathology Thank you for this consult. I will sign off. He may follow up with Dr Wily Gil one week after discharge. Gretchen Gil MD] GRETCHEN GIL MD May 27, 2025 08:24
--- NOTE | 2025-05-27 08:32 | EKG ---
[facility] Test Date: 2025-05-26 Test Time: 15:19:21 Pat Name: ELI MAR Department: [facility] Room: 228 1 Gender: M Ct Mri Technologist: [id number] : 1960 Requested By: JOSH GIL Order Number: [id number] Reading MD: Wily Gil Measurements Intervals Wallace Rate: 69 P: 54 MD: 156 QRS: -47 QRSD: 109 T: 102 QT: 438 QTc: 468 Interpretive Statements Sinus rhythm LAD, consider left anterior fascicular block Probable lateral infarct, age indeterminate Compared to ECG 05/26/2025 12:43:18 Myocardial infarct finding now present Left-axis deviation no longer present T-wave abnormality no longer present Possible ischemia no longer present Electronically Signed On 05-27-2025 16:04:03 CDT by Wily Gil Please click the below link to view image of tracing.
[2025-05-27] MEDS: PoTASSium chl 10% ELIXIR 20MEQ 20 MEQ/15 ML UDCUP PO PRN (09:03)
[2025-05-27] MEDS: ASPIRIN 81MG CHEW TAB PO SCH (09:04)
[2025-05-27 12:00] VITALS: BP 107/66; PULSE 75; RESP 19; TEMP 98.3
[2025-05-27] MEDS ORDERED: NITR0.4T50 SL (12:39)
[2025-05-27] MEDS ORDERED: ATOR40TA69 PO (12:39)
[2025-05-27] MEDS ORDERED: ASPI-1005 PO (12:39)
--- NOTE | 2025-05-27 12:44 | DS ---
Discharge Summary Hospital Course Summary: Patient initially admitted to the hospital May 26, 2025 with the following history of the present illness: 64-year-old male with no significant past medical history who presented to the hospital secondary to chest pain. Patient states for the past one week he has noted midsternal chest pain which has been happening intermittently at rest. The pain would radiate towards his jaw and his arms. He denied any paresthesia s, nausea, vomiting associated with the pain. Describes the pain as ' burning' in nature. Pain happened again today which did not resolve and was more substantial and continued to persist. Patient was taking aspirin for the past few days. He currently does not take any medications at home. Denied any abdominal pain, fever, chills, cough, falls, syncopal episode. He does not see primary care physician. Took aspirin today prior to coming to the hospital. Labs in the ED were notable for white count of 8.4, hemoglobin was 14.2, platelet count was 248 K, sodium was 138, potassium was 3.3, creatinine was 0.9, blood glucose was 117, troponin was 1015 which increased to 1227 Chest x-ray showed no acute infiltrates In the ER patient's 1st EKG showed ST depressions in V2 and V3. This was concerning for possible posterior DC. Cardiology was consulted. Patient had repeat EKG performed with per posterior leads which showed improvement. Cardiology recommended treatment with heparin drip, aspirin, Lipitor. The patient will remain NPO for now until further evaluation by Cardiology. HOSPITALIZATION COURSE PATIENT EVALUATED BY PEST CONTROL SPECIALIST, LEFT HEART CATHETERIZATION DONE MAY 26, 2025, REPORTED FOLLOWS: DATE OF PROCEDURE: May 26, 2025 RETAIL CLIENT SOLUTIONS ANALYST: [ Wily gil MD] PROCEDURE PERFORMED: Conscious sedation Ultrasound guided right radial artery access Selective left coronary artery angiogram Selective right coronary artery angiogram Left heart catheterization EUS of the LAD and left main Status post successful IVUS guided PTCA/PCI of the proximal LAD (3.5 x 15 mm ruthann [place] RADHA, post dil to 4 mm) Status post successful PTCA/PCI of the proximal OM2 (3.5 x 15 mm ruthann [place] RADHA, postdilated 4 mm) TR band 13 jerzy over right radial artery INDICATION: NSTEMI DESCRIPTION OF PROCEDURE: After informed consent was obtained, the patient was prepped and draped in the usual sterile fashion. A 6 [place] arterial sheath was inserted in the right radial artery using ultrasound guidance with first pass wall puncture. The arterial sheath was aspirated and flushed. A 6 [place] JL 3.5 was then advanced to the ascending aorta over an exchange length J-tip guidewire, was aspirated and flushed, and was used for selective coronary angiograms in multiple obliquities. A JR-4 was advanced in a similar fashion to the ascending aorta over the J-tipped guidewire and was used for selective right coronary angiograms in multiple oblique views with findings as outlined below. The JR-4 catheter advanced into the LV and pressures were obtained with a pull-back across the aortic valve. Following review of the angiographic images decision was made to intervene on patient's critical LAD and OM2 stenosis. We exchanged the diagnostic catheters for a six [place] XB three guide which was advanced over the wire and similar fashion used to engage the left main coronary artery. We provided a total of 8000 so IV heparin and loading doses of ticagrelor and following therapeutic ACT we advanced a Prowater into the distal LAD under fluoroscopic guidance. We then proceeded with predilatation using a 3 x 12 mm compliant balloon to 14 JERZY. We proceeded with IVUS imaging of the LAD and left main to delineate lesion morphology and characteristics. We then deployed a 3.5 x 15 mm ruthann [place] drug-eluting stent within the proximal LAD which was deployed to nominal pressures. This was post dilated with a 4 mm x 15 NC balloon to 14 JERZY. We provided 200 mcg of intracoronary nitroglycerin and repeat angiogram revealed anglican of brisk flow with no dissections or perforations. At this time we redirected our attention to the OM2 lesion. We move the Prowater and advanced a run-through wire into the distal OM2 under fluoroscopic guidance. We pre-dilated the proximal OM2 using a 3 x 12 mm compliant balloon to 14 JERZY. We then deployed a 3.5 x 15 mm ruthann [place] drug- eluting stent in the proximal OM2 to nominal pressures. This was post dilated with a 4 x 15 mm noncompliant balloon to nominal pressures. We provided an additional 200 mcg of intracoronary nitroglycerin and repeat angiogram revealed anglican of ISAIAS three flow down the LAD and left circumflex with no dissections or perforations. At this time we removed all wires and catheters in the body and a TR band was placed over the right radial artery with patent hemostasis. Patient tolerated procedure well with no postprocedural complication was transferred to clinical lab assistant holding in stable condition. FLUOROSCOPY TIME: 18.1 min LEFT HEART HEMODYNAMICS: LVEDP 8 mm Hg and no gradient Ao CORONARY ANGIOGRAM: LEFT MAIN: Patent and 0% stenosis. Gives rise to LCx and LAD. LEFT ANTERIOR DESCENDING: Large vessel giving rise to two Diagonal branches. There is 99% proximal LAD stenosis just at the first septal artery with ISAIAS 2 flow. Diags are patent LEFT CIRCUMFLEX: Large and gives rise to two OM branches. 20-30% mid stenosis. OM1 is small and patent. OM2 is large with 99% proximal stenosis RIGHT CORONARY ARTERY: Codominant vessel giving rise to PDA . 60-70% proximal stenosis. HEMOSTASIS: TR band 12 jerzy over right radial artery INTERVENTIONS: Status post successful IVUS guided PTCA/PCI of the proximal LAD (3.5 x 15 mm ruthann [place] RADHA, post dil to 4 mm) Status post successful PTCA/PCI of the proximal OM2 (3.5 x 15 mm ruthann [place] RADHA, postdilated 4 mm) COMPLICATIONS: None FINDINGS: Normal coronary anatomy and severe 2vCAD. ESTIMATED BLOOD LOSS: 5 cc RECOMMENDATIONS/INSTRUCTIONS: Aggressive risk factor modification. Patient will require 12 months of dual antiplatelet therapy (aspirin 81 mg da santiago/ticagrelor 90 mg b.i.d.) in addition to high-intensity statin therapy and beta-melo Radial arm precautions follow up on 2D echocardiogram The patient remains stable can be discharged tomorrow morning with close outpatient cardiology follow up CONTRAST DELIVERED TO PATIENT (mL): 240cc Wily Gil MD [employer] Set Up Operator(s): CARDIOLOGY Procedure(s): DATE OF PROCEDURE: May 26, 2025 RETAIL CLIENT SOLUTIONS ANALYST: [ Wily gil MD] PROCEDURE PERFORMED: Conscious sedation Ultrasound guided right radial artery access Selective left coronary artery angiogram Selective right coronary artery angiogram Left heart catheterization EUS of the LAD and left main Status post successful IVUS guided PTCA/PCI of the proximal LAD (3.5 x 15 mm ruthann [place] RADHA, post dil to 4 mm) Status post successful PTCA/PCI of the proximal OM2 (3.5 x 15 mm ruthann [place] RADHA, postdilated 4 mm) TR band 13 jerzy over right radial artery INDICATION: NSTEMI DESCRIPTION OF PROCEDURE: After informed consent was obtained, the patient was prepped and draped in the usual sterile fashion. A 6 [place] arterial sheath was inserted in the right radial artery using ultrasound guidance with first pass wall puncture. The arterial sheath was aspirated and flushed. A 6 [place] JL 3.5 was then advanced to the ascending aorta over an exchange length J-tip guidewire, was aspirated and flushed, and was used for selective coronary angiograms in multiple obliquities. A JR-4 was advanced in a similar fashion to the ascending aorta over the J-tipped guidewire and was used for selective right coronary angiograms in multiple oblique views with findings as outlined below. The JR-4 catheter advanced into the LV and pressures were obtained with a pull-back across the aortic valve. Following review of the angiographic images decision was made to intervene on patient's critical LAD and OM2 stenosis. We exchanged the court gnostic catheters for a six [place] XB three guide which was advanced over the wire and similar fashion used to engage the left main coronary artery. We provided a total of 8000 so IV heparin and loading doses of ticagrelor and following therapeutic ACT we advanced a Prowater into the distal LAD under fluoroscopic guidance. We then proceeded with predilatation using a 3 x 12 mm compliant balloon to 14 JERZY. We proceeded with IVUS imaging of the LAD and left main to delineate lesion morphology and characteristics. We then deployed a 3.5 x 15 mm ruthann [place] drug-eluting stent within the proximal LAD which was deployed to nominal pressures. This was post dilated with a 4 mm x 15 NC balloon to 14 JERZY. We provided 200 mcg of intracoronary nitroglycerin and repeat angiogram revealed anglican of brisk flow with no dissections or perforations. At this time we redirected our attention to the OM2 lesion. We move the Prowater and advanced a run-through wire into the distal OM2 under fluoroscopic guidance. We pre-dilated the proximal OM2 using a 3 x 12 mm compliant balloon to 14 JERZY. We then deployed a 3.5 x 15 mm ruthann [place] drug- eluting stent in the proximal OM2 to nominal pressures. This was post dilated with a 4 x 15 mm noncompliant balloon to nominal pressures. We provided an additional 200 mcg of intracoronary nitroglycerin and repeat angiogram revealed anglican of ISAIAS three flow down the LAD and left circumflex with no dissections or perforations. At this time we removed all wires and catheters in the body and a TR band was placed over the right radial artery with patent hemostasis. Patient tolerated procedure well with no postprocedural complication was transferred to clinical lab assistant holding in stable condition. FLUOROSCOPY TIME: 18.1 min LEFT HEART HEMODYNAMICS: LVEDP 8 mm Hg and no gradient Ao CORONARY ANGIOGRAM: LEFT MAIN: Patent and 0% stenosis. Gives rise to LCx and LAD. LEFT ANTERIOR DESCENDING: Large vessel giving rise to two Diagonal branches. There is 99% proximal LAD stenosis just at the first septal artery with ISAIAS 2 flow. Diags are patent LEFT CIRCUMFLEX: Large and gives rise to two OM branches. 20-30% mid stenosis. OM1 is small and patent. OM2 is large with 99% proximal stenosis RIGHT CORONARY ARTERY: Codominant vessel giving rise to PDA . 60-70% proximal stenosis. HEMOSTASIS: TR band 12 jerzy over right radial artery INTERVENTIONS: Status post successful IVUS guided PTCA/PCI of the proximal LAD (3.5 x 15 mm ruthann [place] RADHA, post dil to 4 mm) Status post successful PTCA/PCI of the proximal OM2 (3.5 x 15 mm ruthann [place] RADHA, postdilated 4 mm) COMPLICATIONS: None FINDINGS: Normal coronary anatomy and severe 2vCAD. ESTIMATED BLOOD LOSS: 5 cc RECOMMENDATIONS/INSTRUCTIONS: Aggressive risk factor modification. Patient will require 12 months of dual antiplatelet therapy (aspirin 81 mg daily/ticagrelor 90 mg b.i.d.) in addition to high-intensity statin therapy and beta-melo Radial arm precautions follow up on 2D echocardiogram The patient remains stable can be discharged tomorrow morning with close outpatient cardiology follow up CONTRAST DELIVERED TO PATIENT (mL): 240cc Wily Gil MD Assessment/Plan: FINAL DIAGNOSIS ACS with NSTEMI POA Status post left heart catheterization 05/26/2025, status post successful PCI of the proximal LAD and PCI proximal OM2 (findings of normal coronary anatomy and severe two vessel CAD) Hypokalemia Hypertension improved Discharge Instructions: The patient to follow up with the assistant sales center manager Dr. Wily gil as an outpatient. Prescription for aspirin 81 mg p.o. daily as well as Brilinta 90 mg p.o. b.i.d. has been sent to the pharmacy, however the patient is unfunded, would like a cheaper option, Plavix we will be called in tomorrow for 600 mg loading dose and then on 05/29 75 mg po daily. Prescription for atorvastatin 40 [facility] p[facility] Time spent arranging discharge: 31-60 minutes CHRISTINE CARDENAS MD May 27, 2025 12:44
--- NOTE | 2025-05-27 13:38 | NUR ---
CALLED PATIENT'S PHARMACY AND CONFIRMED FINAL LIST OF MEDICATIONS (SPOKE WITH [facility]ON PHARMACIST). PATIENT TO TAKE LOADING DOSE OF PLAVIX 600MG ON 05/28/25 AND CONTINUE WITH PLAVIX 75MG DAILY STARTING ON 05/29/2025. TOPROL XL 25 MG, 1 TAB PO DAILY. ATORVASTATIN 40MG, 1 TAB PO QHS. ASA EC 81 MG, 1 TAB PO DAILY. NITRO 0.04MG PRN.
--- NOTE | 2025-05-27 14:00 | NUR ---
Pt. refused 2nd dose of Hypokalemia protocol oral potassium.
--- NOTE | 2025-05-27 14:17 | NUR ---
Pt. and family members present at bedside given discharge instructions. All questions answered concerning discharge medication regimen and follow up MD appointments. Peripheral IV removed. No oozing, bruising, or hematoma noted to vascular access sites. No acute distress noted.
--- NOTE | 2025-05-27 14:28 | NUR ---
Pt. discharged from facility via w/c.
== END 2025-05-27 14:29 | disposition home or self-care (01) | DRG 322 ==
LOC: EDH 08:54 → EDHIP 08:55 → 2DH 22:30
PROVIDERS: ADMIT Internal Medicine; ATTEND Internal Medicine
PROC: 027135Z Dilation of Coronary Artery, Two Arteries with Two Drug-eluting Intraluminal Devices, Percutaneous Approach (ICD-10-PCS; principal; 2025-05-26)
PROC: 4A023N7 Measurement of Cardiac Sampling and Pressure, Left Heart, Percutaneous Approach (ICD-10-PCS; 2025-05-26)
PROC: B240ZZ3 Ultrasonography of Single Coronary Artery, Intravascular (ICD-10-PCS; 2025-05-26)
PROC: 0DJ07ZZ Inspection of Upper Intestinal Tract, Via Natural or Artificial Opening (ICD-10-PCS; 2025-05-26)
PROC: B2111ZZ Fluoroscopy of Multiple Coronary Arteries using Low Osmolar Contrast (ICD-10-PCS; 2025-05-26)
DX: I21.4 Non-ST elevation (NSTEMI) myocardial infarction (principal); E11.9 Type 2 diabetes mellitus without complications; E87.6 Hypokalemia; I10 Essential (primary) hypertension; I25.10 Atherosclerotic heart disease of native coronary artery without angina pectoris
CPT/HCPCS: 36415; 71045; 80048; 80061; 81001; 82550; 83036; 83735; 84443; 84484; 85025; 85027; 85610; 85730; 92978; 92979; 93005; 93306; 93356; 93458; 99156; 99157; 99291; C1769; C9600; G0378; J1644; J2250; J3010; J3490; Q9967; A4649; C1725; C1753; C1874; C1887; C1894; Q9965